=== PATIENT | male | born 1990 | race Caucasian/White ===

== ENCOUNTER 2019-11-13 09:48 | Day surgery (SDC) | payer BC ==
--- OUTSIDE RECORDS SUMMARY | 2019-11-13 09:51 | XMS REPORT ---
:1990 [facility] Organization [facility] Address [address] [place] [address] [address] [place] [address] Care Team Providers Name Role Phone Unavailable Unavailable Unavailable Problems This patient has no known problems. Allergies, Adverse Reactions, Alerts This patient has no known allergies or adverse reactions. Medications This patient has no known medications.
[2019-11-13] MEDS ORDERED: CEFOXITIN/SWI 1gm 1 GM/10 ML SYR ONE (10:18)
[2019-11-13] MEDS ORDERED: Ringers Lactate 1,000 ML IV ONE (10:18)
[2019-11-13] MEDS ORDERED: METHYLENE BLUE 0.5% 10 ML AMP ONE (10:26)
[2019-11-13] MEDS ORDERED: propofoL 200 MG/20 ML VIAL IV ONE (10:32)
[2019-11-13] MEDS ORDERED: FENTANYL CITR 100 MCG/2 ML ONE (10:32)
[2019-11-13] MEDS ORDERED: LIDOCAINE 1% MPF 5 ML VIAL ONE (10:32)
[2019-11-13] MEDS ORDERED: ROCURONIUM 50 MG/5 ML VIAL IV ONE (10:32)
[2019-11-13] MEDS ORDERED: MIDAZOLAM HCL 2 MG/2 ML INJ ONE (10:32)
--- NOTE | 2019-11-13 11:28 | P.HP ---
Date of Service: 11/13/19 PC: This 29-year-old male presents for drainage of the pilonidal abscess HPC: Patient has had pain in discomfort in the cintia cleft for the last week or so. Has noticed a mass that is increasing in size. Started to drain minimally. The causing excruciating pain, and the pain she can't sit down. PMH: Negative PSHx: Negative SOC: Allergic to penicillin SYS REVIEW: No cough, wheeze, shortness of breath. No chest pain or palpitations. No urinary complaints. This is his 1st episode. O/E awake alert stable, laying comfortably on his side HEENT: Within normal limits Chest: The equal bilaterally ABD: Soft nontender LOCO: Has a area of firmness in the cleft, exquisitely tender, has a visible pith DATA: Within normal limits IMPRESSION: Pilonidal abscess PLAN: I will take him the operating room for incision, drainage, sharp debridement of this pilonidal abscess. The risks this procedure have been discussed. The possibility of bleeding, infection, recurrence, and need for further surgeries and procedures was explained. He understands and wants to proceed.
[2019-11-13] MEDS ORDERED: GLYCOPYRROLATE 0.2 MG/ML SYR ONE (12:11)
[2019-11-13] MEDS ORDERED: KETOROLAC 30 MG/ML INJ ONE (12:11)
[2019-11-13] MEDS ORDERED: ONDANSETRON 4 MG/2 ML VIAL ONE (12:17)
[2019-11-13] MEDS ORDERED: NEOSTIGMINE 1 MG/ML -5 ML ONE (12:17)
[2019-11-13] MEDS ORDERED: MEPERIDINE HCL 25 MG/0.5 ML ONE (12:39)
[2019-11-13] MEDS ORDERED: HYDROMORPHONE HCL 2 MG/ML inj ONE (12:46)
--- NOTE | 2019-11-13 12:51 | P.OP ---
Preoperative diagnosis: Pilonidal abscess Postoperative diagnosis: The same Primary procedure: Incision, drainage, sharp debridement Anesthesia: General Estimated blood loss: Less than 10 cc Specimen: None were sent Operative Technique: The patient brought the operating room placed supine on the table. After the induction of adequate general anesthesia, he was rolled into the prone position on the OR table. Securing his airway, the area of the buttocks was now taped open. There was then prepped with a Betadine solution, and he was draped in usual aseptic manner. The cleft was inspected. We could see in the midline there was a tuft of chronic granulation tissue. After injecting into the abscess with 0.25% Marcaine , we could see extravasation of the local out through the center of this 1 cm mass. An 18 gauge angiocath was now passed down through this small fistulous tract. The abscess was opened by cutting down through the midline and going just lateral to this a mass. We encounter large amount of thick purulent material. This was drained using the suction. The wound having been opened we could see that it communicated upward and into the right buttock in the subcutaneous tissue. This area was now curetted with a cutting surgical curette. The fistulous tract was excised in toto using the electro cautery. The granulation tissue was now removed and the base of this cauterized using electro cautery. Hemostasis having been established, a 2. Nylon was now brought into the wound and out laterally to keep it open and draining during the postoperative period. At this point a sterile dressing was applied. He was in a stable condition when sent to the recovery room. Needle sponge instrument count were correct. Complications: None Drain(s): Other (2. Nylon) Transferred to: Recovery Room Condition: Good
--- NOTE | 2019-11-13 12:53 | P.DS ---
Discharge Date: 11/13/19 Disposition: ROUTINE DISCHARGE Discharge Condition: GOOD Procedures: Incision, drainage, and sharp debridement of pilonidal abscess Brief History of Present Illness: Patient had pain in discomfort in the cintia cleft. He went to the emergency room. They referred him to my office. He was brought today for an incision, drainage, and sharp debridement of this abscess. He underwent his procedure and tolerated it well. He is now deemed fit for discharge. Hospital Course: See previous note Vital Signs/Physical Exam: Temp Pulse Resp BP Pulse Ox 98 F 80 16 112/49 L 11/13/19 12:28 11/13/19 12:40 11/13/19 12:40 11/13/19 12:40 Home Medications: Codeine/APAP [Tylenol W/Codeine #3 tab] 1 tab PO Q4HP PRN 11/13/19 Hydrocodone 5/APAP 325 [Morrice 5/325] 1 tab PO Q6H PRN 11/13/19
[2019-11-13] MEDS ORDERED: HYDROCODONE/APAP 7.5/325 MG TAB ONE (13:48)
[2019-11-13 13:53] VITALS: BP 111/49; TEMP 98.5; O2SAT 96
== END 2019-11-13 14:15 | disposition home or self-care (01) ==
LOC: OR 09:48
PROVIDERS: ATTEND Surgery
PROC: 0J990ZZ Drainage of Buttock Subcutaneous Tissue and Fascia, Open Approach (ICD-10-PCS; principal; 2019-11-13 11:00)
DX: L05.01 Pilonidal cyst with abscess (principal); Z88.0 Allergy status to penicillin
CPT/HCPCS: 10060; J2704; J2250; J1170; J3010; J2175; J2710; J7120; J2405